=== PATIENT | female | born 1995 | race Caucasian/White ===

== ENCOUNTER 2018-07-21 18:10 | Emergency (ER) | payer SELFPAY, OTHER | END 2018-07-21 20:59 | disposition home or self-care (01) | LOC: FTE 18:10 | DX: R05 Cough (principal); J45.909 Unspecified asthma, uncomplicated | CPT/HCPCS: 81025; 99283 ==

== ENCOUNTER 2018-12-19 18:01 | Emergency (ER) | payer OTHER ==
[2018-12-19 20:08] LABS: URINE BLOOD (Dip) POC 3+ (NEGATIVE); URINE GLUCOSE (Dip) POC Negative (NEGATIVE); URINE KETONES (Dip) POC 2+ (NEGATIVE); URINE LEUKOCYTE EST (Dip) POC Trace (NEGATIVE); URINE NITRITE (Dip) POC Negative (NEGATIVE); URINE TOTAL PROTEIN POC 1+ (NEGATIVE)
[2018-12-19] MEDS: hydrOXYzine PAMOATE 25 MG CAP PO (20:48)
== END 2018-12-19 21:32 | disposition home or self-care (01) ==
LOC: FTE 18:01
DX: E86.0 Dehydration (principal); J45.909 Unspecified asthma, uncomplicated; F17.210 Nicotine dependence, cigarettes, uncomplicated
CPT/HCPCS: 81003; 81025; 99283